=== PATIENT | female | born 1995 | race Caucasian/White ===

== ENCOUNTER 2017-06-27 05:08 | Emergency (ER) | payer OTHER ==
[2017-06-27 05:45] VITALS: TEMP 98.7
[2017-06-27] MEDS ORDERED: Sodium Chloride 0.9% 1,000 ML IV ONE (06:13)
--- NOTE | 2017-06-27 06:29 | C.PDOC ---
History Of Present Illness <Rene Osman - Last Filed: 06/27/17 06:26> <Funmilayo Zaman - Last Filed: 06/27/17 13:18> 21 year old female presents to the ER with a complaint of lower abdominal pain and dysuria since last night. Denies other complaints at this time. (Rene Osman) History Per: Patient History/Exam Limitations: no limitations Onset/Duration Of Symptoms: Hrs Current Symptoms Are (Timing): Still Present Location Of Pain/Discomfort: RUQ, LUQ Radiation Of Pain To:: None Quality Of Discomfort: Unable To Describe Associated Symptoms: denies: Fever, Chills, Nausea, Vomiting Exacerbating Factors: None Alleviating Factors: None Recent travel outside of the [place]: No Abnormal Vaginal Bleeding: No <Rene Osman - Last Filed: 06/27/17 06:26> <Funmilayo Zaman - Last Filed: 06/27/17 13:18> Time Seen by Provider: 06/27/17 06:10 Chief Complaint (Nursing): Abdominal Pain Past Medical History Reviewed: Historical Data, Nursing Documentation, Vital Signs - Medical History PMH: No Chronic Diseases Surgical History: No Surg Hx Family History: States: Unknown Family Hx - Social History Hx Tobacco Use: No Hx Alcohol Use: No Hx Substance Use: No - Immunization History Hx Tetanus Toxoid Vaccination: No Hx Influenza Vaccination: No Hx Pneumococcal Vaccination: No <Rene Osman - Last Filed: 06/27/17 06:26> Vital Signs: Last Vital Signs Temp 98.7 F 06/27/17 05:42 Pulse 71 06/27/17 12:25 Resp 16 06/27/17 12:25 BP 103/61 06/27/17 12:25 Pulse Ox 100 06/27/17 12:25 Review Of Systems Constitutional: Negative for: Fever, Chills Gastrointestinal: Positive for: Abdominal Pain. Negative for: Nausea, Vomiting Genitourinary: Positive for: Dysuria <Rene Osman - Last Filed: 06/27/17 06:26> Physical Exam - Physical Exam Appears: Non-toxic, No Acute Distress Skin: Normal Color, Warm, Dry Head: Atraumatic, Normacephalic Oral Mucosa: Moist Chest: Symmetrical, No Tenderness Cardiovascular: Rhythm Regular Respiratory: Normal Breath Sounds, No Rales, No Rhonchi, No Wheezing Gastrointestinal/Abdominal: Soft, Tenderness (Mild suprapubic) Neurological/Psych: Oriented x3, Normal Speech, Other (No focal deficits) <Rene Osman - Last Filed: 06/27/17 06:26> ED Course And Treatment O2 Sat by Pulse Oximetry: 97 (room air) Pulse Ox Interpretation: Normal <Rene Osman - Last Filed: 06/27/17 06:26> - Laboratory Results Result Diagrams: 06/27/17 06:33 06/27/17 06:33 - CT Scan/US ct abd/pelvis Other Rad Studies (CT/US): Read By Radiologist, Radiology Report Reviewed CT/US Interpretation: Accession No. : [id number]. Patient Name / ID : AGUILA SOOD / [id number]. Exam Date : 06/27/2017 09:47:50 ( Approved ). Study Comment : Sex / Age : F / 21Y. Creator : ANN. PHONG Dictator : Direct Mail Manager : Team Physician : ANN. PHONG Approver2 : Report Date : 06/27/2017 11: 10:00. My Comment : . [facility] Division of Radiology. [address] [place] [address]. Tel. no. . . . Patient Name: INDIGO SHEEHAN . Pt. Address: [address] [place] [address]. Rec #: [id number]. [place] [address]: Rene Osman DO. Pt Order Location: [facility] : 1995 Female Age: 21 Order #: [id number]. Reason for exam: lower abd pain. . . . . . CT Scan. . . ABD PELVIS PO IV CONTRAST Exam Date: 06/27/17. . This imaging exam was performed at [facility]. EXAM: CT Abdomen and Pelvis With Intravenous Contrast. . EXAM DATE/TIME: 06/27/2017 6:47 AM. . CLINICAL HISTORY: 21 years old, female; Pain; Abdominal pain; Localized; Lower; Additional. info: Lower abd pain. . TECHNIQUE: Axial computed tomography images of the abdomen and pelvis with intravenous. contrast. All CT scans at this facility use one or more dose reduction. techniques, viz.: automated exposure control; ma/kV adjustment per patient size. (including targeted exams where dose is matched to indication; i.e. head); or. iterative reconstruction technique. Coronal and sagittal reformatted images were created and reviewed. . CONTRAST: 100 mL of visipaque 320 administered intravenously. . COMPARISON: No relevant prior studies available. . FINDINGS: Lower thorax: No acute findings. . ABDOMEN: Liver: Unremarkable. No mass. Gallbladder and bile ducts: Unremarkable. No calcified stones. No ductal. dilation. Pancreas: Unremarkable. No mass. No ductal dilation. Spleen: Unremarkable. No splenomegaly. Adrenals: Unremarkable. No mass. Kidneys and ureters: Unremarkable. No solid mass. No hydronephrosis. Stomach and bowel: Wall of terminal ileum appears thickened. Luminal. narrowing, thin trace of contrast on coronal image 34. No dilatation of small. or large. Appendix: Normal. . PELVIS: Bladder: Unremarkable. No mass. Reproductive: Unremarkable as visualized. . ABDOMEN and PELVIS: Intraperitoneal space: Unremarkable. No free air. No significant fluid. collection. Bones/joints: No acute fracture. Soft tissues: Unremarkable. Vasculature: Unremarkable. No abdominal aortic aneurysm. Lymph nodes: Mesenteric nodes mostly in the right lower quadrant, largest. about 7 mm. . IMPRESSION: High suspicion of terminal ileitis and inflammatory bowel disease. Additional. evaluation. . Dictated By: Dahlia Kohli. Dictated Date/Time: 06/27/17 1110. Signed By: MD Dahlia Kohli. Date Signed: 06/27/171109. Transcribed By: [facility]. Transcribe Date/Time: 06/27/170. AATP02/MT <Funmilayo Zaman - Last Filed: 06/27/17 13:18> Medical Decision Making <Rene Osman - Last Filed: 06/27/17 06:26> <Funmilayo Zaman - Last Filed: 06/27/17 13:18> Medical Decision Making: Blood work and urinalysis ordered. IV fluids administered. (Rene Osman) Disposition <Rene Osman - Last Filed: 06/27/17 06:26> Counseled Patient/Family Regarding: Studies Performed, Diagnosis, Need For Followup, Rx Given - Disposition Disposition Time: 13:15 - POA Present On Arrival: None <Funmilayo Zaman - Last Filed: 06/27/17 13:18> - Disposition Referrals: Yanely Stevens [Staff Provider] - [facility] [Outside] Disposition: HOME/ ROUTINE Condition: STABLE Additional Instructions: FOLLOW UP WITH GI WITHIN 1 WEEK USE MEDICATIONS DIRECTED RETURN TO ER IF SYMPTOMS WORSEN Prescriptions: Ciprofloxacin [Cipro] 1 tab PO BID #14 tab Dicyclomine [Bentyl] 20 mg PO Q6 PRN #15 tab PRN Reason: ABDOMINAL CRAMPING metroNIDAZOLE [Flagyl] 500 mg PO TID #21 tab Instructions: Urinary Tract Infection in Women (ED) Forms: [employer] (Tristanian) Print Language: MALTESE - Clinical Impression Clinical Impression: Ileitis, UTI (urinary tract infection) - Scribe Statement The provider has reviewed the documentation as recorded by the Scribe <Rene Osman - Last Filed: 06/27/17 06:26> <Funmilayo Zaman - Last Filed: 06/27/17 13:18> - Scribe Statement Shree Barbour All medical record entries made by the Scribe were at my direction and personally dictated by me. I have reviewed the chart and agree that the record accurately reflects my personal performance of the history, physical exam, medical decision making, and the department course for this patient. I have also personally directed, reviewed, and agree with the discharge instructions and disposition. (Rene Osman)
[2017-06-27 06:37] LABS: BASO # 0.1 K/uL (0.0-0.2); BASO % 0.4 % (0.0-2.0); EOS # 0.1 K/uL (0.0-0.7); EOS % 0.7 % (0.0-4.0); HEMATOCRIT 36.5 % (34.0-47.0); LYMPH # 1.9 K/uL (1.0-4.3); LYMPH % 13.1 % (20.0-40.0); MEAN CELL VOLUME 75.3 fL (81.0-99.0); MEAN CORPUSCULAR HGB CONC 31.9 g/dL (33.0-37.0); MEAN PLATELET VOLUME 8.2 fL (7.2-11.7); MONO # 0.7 K/uL (0.0-0.8); RED CELL DISTRIBUTION WIDTH 16.4 % (11.5-14.5); WHITE BLOOD COUNT 14.4 K/uL (4.8-10.8)
[2017-06-27 06:43] LABS: RBC URINE 93 /hpf (0-3); URINE BILIRUBIN NEGATIVE (NEGATIVE); URINE BLOOD 2+ (NEGATIVE); URINE COLOR Yellow (YELLOW); URINE GLUCOSE (UA) NORMAL (Normal); URINE KETONE NEGATIVE (NEGATIVE); URINE LEUKOCYTE ESTERASE 2+ Leu/uL (Negative); URINE PROTEIN 2+ mg/dL (NEGATIVE); URINE UROBILINOGEN NORMAL mg/dL (0.2-1.0); WBC CLUMPS MANY /hpf; WBC URINE 1328 /hpf (0-5)
[2017-06-27] MEDS ORDERED: Iohexol 240 (50 ml) PO STA (06:47)
[2017-06-27 06:49] LABS: ALB/GLOB RATIO 1.1 (1.0-2.1); ALKALINE PHOSPHATASE 70 U/L (38-126); ALT/SGPT 38 U/L (9-52); AST/SGOT 21 U/L (14-36); BILIRUBIN,TOTAL 0.1 mg/dL (0.2-1.3); BLOOD UREA NITROGEN 10 mg/dL (7-17); CALCIUM 8.5 mg/dl (8.6-10.4); CARBON DIOXIDE 27 mmol/L (22-30); CHLORIDE 100 mmol/L (98-107); GFR AFRICAN-AMERICAN > 60; GLUCOSE,RANDOM 95 mg/dL (65-105); POTASSIUM 3.3 mmol/L (3.6-5.2); SODIUM 136 mmol/L (132-148)
[2017-06-27] MEDS ORDERED: Potassium Chloride 20 mEq/15 ml LIQ UD PO STA (06:50)
[2017-06-27] MEDS ORDERED: cefTRIAXone IV 1 gm in Dextros 50 ML IVPB STA (07:04)
[2017-06-27] MEDS ORDERED: Iohexol 240 (50 ml) ONE (07:27)
[2017-06-27] MEDS ORDERED: cefTRIAXone IV 1 gm in Dextros 50 ML IVPB ONE (07:28)
[2017-06-27] MEDS ORDERED: Potassium Chloride 20 mEq ER Tab PO ONE (07:28)
[2017-06-27] MEDS ORDERED: Iodixanol 320 mg/ml 150 ml Bottle IV ONE (07:58)
[2017-06-27 08:06] VITALS: RESP 16; O2SAT 100
--- NOTE | 2017-06-27 11:10 | CT ---
EXAM: CT Abdomen and Pelvis With Intravenous Contrast EXAM DATE/TIME: 06/27/2017 6:47 AM CLINICAL HISTORY: 21 years old, female; Pain; Abdominal pain; Localized; Lower; Additional info: Lower abd pain TECHNIQUE: Axial computed tomography images of the abdomen and pelvis with intravenous contrast. All CT scans at this facility use one or more dose reduction techniques, viz.: automated exposure control; ma/kV adjustment per patient size (including targeted exams where dose is matched to indication; i.e. head); or iterative reconstruction technique. Coronal and sagittal reformatted images were created and reviewed. CONTRAST: 100 mL of visipaque 320 administered intravenously. COMPARISON: No relevant prior studies available. FINDINGS: Lower thorax: No acute findings. ABDOMEN: Liver: Unremarkable. No mass. Gallbladder and bile ducts: Unremarkable. No calcified stones. No ductal dilation. Pancreas: Unremarkable. No mass. No ductal dilation. Spleen: Unremarkable. No splenomegaly. Adrenals: Unremarkable. No mass. Kidneys and ureters: Unremarkable. No solid mass. No hydronephrosis. Stomach and bowel: Wall of terminal ileum appears thickened. Luminal narrowing, thin trace of contrast on coronal image 34. No dilatation of small or large. Appendix: Normal. PELVIS: Bladder: Unremarkable. No mass. Reproductive: Unremarkable as visualized. ABDOMEN and PELVIS: Intraperitoneal space: Unremarkable. No free air. No significant fluid collection. Bones/joints: No acute fracture. Soft tissues: Unremarkable. Vasculature: Unremarkable. No abdominal aortic aneurysm. Lymph nodes: Mesenteric nodes mostly in the right lower quadrant, largest about 7 mm. IMPRESSION: High suspicion of terminal ileitis and inflammatory bowel disease. Additional evaluation.
[2017-06-27 12:26] VITALS: BP 103/61; PULSE 71
[2017-06-27] MEDS ORDERED: Dexamethasone 4 mg/1 ml ONE (13:40)
[2017-06-27] MEDS ORDERED: Dexamethasone 4 mg/1 ml IM STA (13:51)
== END 2017-06-27 13:56 | disposition home or self-care (01) ==
LOC: C.ER 05:08
DX: K52.9 Noninfective gastroenteritis and colitis, unspecified (principal); N39.0 Urinary tract infection, site not specified; E87.6 Hypokalemia
CPT/HCPCS: 74177; 80053; 81001; 83690; 84703; 85025; 96365; 96372; 99285; J0696; J1100; J7040; Q9966; Q9967

== ENCOUNTER 2018-12-21 09:16 | Outpatient (CLI) | payer OTHER | END 2018-12-21 09:17 | disposition home or self-care (01) | LOC: C.USIC 09:16 | DX: N64.4 Mastodynia (principal) ==